=== PATIENT | female | born 1940 | race Caucasian/White ===

== ENCOUNTER → 2018-01-21 | Outpatient (CLI) | payer MEDICARE ==
--- NOTE | 2018-01-21 16:51 | Diagnostic Imaging Report ---
EXAMINATION: MRI of the brain without contrast. HISTORY: Syncope COMPARISON: None. TECHNIQUE: Sagittal T2; axial DWI, T2, FLAIR, T1-IR, T2 gradient echo; coronal FLAIR. IMAGE QUALITY: Adequate. FINDINGS: Parenchyma: 1. Few scattered white matter T2 hyperintense foci, most likely nonspecific chronic microvascular ischemic changes. 2. 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 No mass, hemorrhage, acute or chronic infarcts. Skull: Unremarkable. Vessels: Expected flow voids present in the major arteries and dural sinuses. Extra-axial spaces: No abnormal signal intensity or mass effect. Brain volume: Mild generalized volume loss, within normal limits for age. Ventricles: No hydrocephalus or displacement. Foramen magnum: Unremarkable. Sella: Unremarkable. Paranasal / mastoid sinuses: No significant inflammatory disease. IMPRESSION: 1. No acute infarcts. 2. Mild chronic microvascular ischemic changes. 3. Mild generalized brain volume loss. Signed by: Dr. Afsaneh Vera M.D. on 01/21/2018 4:48 PM
== END ==
LOC: MRI 14:36
PROVIDERS: ATTEND Family Medicine
DX: R55 Syncope and collapse (principal)
CPT/HCPCS: 70551